=== PATIENT | female | born 1995 | race Caucasian/White ===

== ENCOUNTER 2025-06-23 22:01 | Emergency (ER) | payer OTHER, MEDICAID ==
[~2025-06-23] VITALS: Ht 160 cm; Wt 123.4 kg
[2025-06-24] MEDS ORDERED: NAPROSYN500 MG PO (00:29)
[2025-06-24] MEDS ORDERED: METHOCARBAMOL750 M1 PO (00:29)
[2025-06-24] MEDS ORDERED: METHOCARBAMOL 750 MG TAB PO ONE (00:30)
== END 2025-06-24 00:35 | disposition home or self-care (01) ==
LOC: ED 22:01
DX: S06.0X0A Concussion without loss of consciousness, initial encounter (principal); Z98.890 Other specified postprocedural states; V89.2XXA Person injured in unspecified motor-vehicle accident, traffic, initial encounter; Y93.89 Activity, other specified; Y92.410 Unspecified street and highway as the place of occurrence of the external cause; Y99.8 Other external cause status